=== PATIENT | male | born 1970 | race Caucasian/White ===

== ENCOUNTER 2017-05-24 10:40 | Emergency (ER) | payer OTHER ==
[2017-05-24 11:10] VITALS: BMI 23.2
[2017-05-24 11:11] VITALS: BP 118/75; PULSE 69; RESP 18; TEMP 98.6; O2SAT 98
--- NOTE | 2017-05-24 12:51 | ED PDOC ---
HPI:Nausea, Vomiting, Diarrhea Time Seen by Provider: 05/24/17 12:13 Chief Complaint (Nursing): GI Problem Chief Complaint (Provider): GI Problem History Per: Patient, [employer]user (cha Gates #[id number]) History/Exam Limitations: language barrier (mongolian) Onset/Duration Of Symptoms: Days (x2) Current Symptoms Are (Timing): Still Present Have you had recent travel within the past 21 days to any of the following countries: [place], [place], [place] or [place]?: No Severity: Mild Quality Of Discomfort: Dull Associated Symptoms: Diarrhea Exacerbating Factors: None Alleviating Factors: None Last Bowel Movement: Today Additional Complaint(s): 47 year old male presents to the emergency department with a complaint of non- bloody diarrhea x12 episodes since last night. Denied any fever, chills, vomiting, abdominal pain, bloody stools, new foods, or recent travel. Patient reported taking PeptoBismol for symptoms with last dose at 0100 earlier today. Patient denies any history of abdominal surgeries. PMD: none provided Past Medical History Reviewed: Historical Data, Nursing Documentation, Vital Signs Vital Signs: Last Vital Signs Temp 98.6 F 05/24/17 11:10 Pulse 69 05/24/17 11:10 Resp 18 05/24/17 11:10 BP 118/75 05/24/17 11:10 Pulse Ox 98 05/24/17 11:10 - Medical History PMH: No Chronic Diseases - Surgical History Surgical History: No Surg Hx - Family History Family History: States: Unknown Family Hx - Social History Current smoker - smoking cessation education provided: No Ex-Smoker (has not smoked in the last 12 months): No Alcohol: Occasional Drugs: Denies - Home Medications Home Medications: Ambulatory Orders Medication Instructions Recorded Dicyclomine [Dicyclomine HCl] 20 mg PO TID PRN #20 cap 05/24/17 - Allergies Allergies/Adverse Reactions: Allergies Allergy/AdvReac Type Severity Reaction Status Date / Time No Known Allergies Allergy Verified 05/12/15 08:12 Review of Systems ROS Statement: Except As Marked, All Systems Reviewed And Found Negative Constitutional: Negative for: Fever, Chills Gastrointestinal: Positive for: Diarrhea. Negative for: Vomiting, Abdominal Pain, Melena, Hematochezia Genitourinary Male: Negative for: Dysuria Skin: Negative for: Rash Physical Exam - Reviewed Nursing Documentation Reviewed: Yes Vital Signs Reviewed: Yes - Physical Exam Appears: Positive for: Well, Non-toxic, No Acute Distress Head Exam: Positive for: NORMOCEPHALIC Skin: Positive for: Normal Color, Warm, Dry. Negative for: Pallor Eye Exam: Positive for: EOMI, PERRL Neck: Positive for: Painless ROM, Supple Cardiovascular/Chest: Positive for: Chest Non Tender. Negative for: Murmur Respiratory: Positive for: Normal Breath Sounds. Negative for: Decreased Breath Sounds, Accessory Muscle Use, Wheezing, Respiratory Distress Gastrointestinal/Abdominal: Positive for: Bowel Sounds (present in all 4 quadrants), Soft. Negative for: Tenderness, Organomegaly, Mass, Distended, Guarding, Rebound Back: Negative for: L CVA Tenderness, R CVA Tenderness Neurologic/Psych: Positive for: Alert, Oriented, Mood/Affect (appropriate), Gait (steady). Negative for: Motor/Sensory Deficits, Aphasia, Facial Droop - Laboratory Results Urine dip results: Negative for: Leukocyte Esterase, Nitrate, Ketones, Glucose, Bilirubin, Protein - ECG O2 Sat by Pulse Oximetry: 98 (RA) Pulse Ox Interpretation: Normal Medical Decision Making Medical Decision Making: Initial Impression: Diarrhea Initial Plan: * Urine dipstick * Bentyl 20mg PO Time: 1223 --UA: within normal limits. negative for evidence of infection, blood, or ketones. Time: 1250 --Upon provider evaluation, patient is medically stable and requires no further treatment in the ED at this time. Patient will be discharged home with Rx for Dicyclomine HCL 20mg. Counseling was provided and all questions were answered regarding diagnosis and need for follow up with clinic. There is agreement to discharge plan. Return if symptoms persist or worsen. Clinical Impression: Diarrhea Scribe Attestation: Documented by Rosalba Manley, acting as a scribe for Margy Hernández PA-C. Provider Scribe Attestation: All medical record entries made by the Scribe were at my direction and personally dictated by me. I have reviewed the chart and agree that the record accurately reflects my personal performance of the history, physical exam, medical decision making, and the department course for this patient. I have also personally directed, reviewed, and agree with the discharge instructions and disposition. Disposition - Clinical Impression Clinical Impression: Diarrhea - Patient ED Disposition Is Patient to be Admitted: No Counseled Patient/Family Regarding: Studies Performed, Diagnosis - Disposition Referrals: [facility] [Outside] Disposition: Routine/Home Disposition Time: 12:50 Condition: STABLE Prescriptions: Dicyclomine [Dicyclomine HCl] 20 mg PO TID PRN #20 cap PRN Reason: Diarrhea Instructions: Diarrhea in Adolescents and Adults, Viral Gastroenteritis, [place] Diet Forms: [employer] (Macedonian) Print Language: [id number]
== END 2017-05-24 13:17 | disposition home or self-care (01) ==
LOC: H.ER 10:40
DX: R19.7 Diarrhea, unspecified (principal)